=== PATIENT | female | born 1945 | race Caucasian/White ===

== ENCOUNTER 2017-08-13 11:58 | Emergency (ER) | payer OTHER, MEDICARE ==
[~2017-08-13] VITALS: Ht 167.6 cm; Wt 100.9 kg
[~2017-08-13 11:58] MED LIST: APIDRA100 UNITS/ PO; ASPIR 8181 M1 PO; BENADRYL25 MG PO; BENZONATATE100 MG PO; CELEXA20 MG PO; COUMADIN1 MG PO; FERROUS SULFAT325 MG PO; FISH OIL300 MG PO; GABAPENTIN600 MG PO; GLIPIZIDE5 M1 PO; GLUCOPHAGE1000 MG PO; HUMALOG100 UNIT/2 SC; HYDROCODON-ACE1 EAC9 PO; LEVEMIR100 UNIT/2 SQ; LIPITOR40 MG PO; LOSARTAN-HCTZ1 EAC2 PO; METHOCARBAMOL500 MG PO; METOPROLOL SUCC25 MG PO; METOPROLOL TAR100 MG PO; OXYCODONE HCL5 MG PO; PERCOCET 7.5-31 EACH PO; PLAVIX75 MG PO; QUDEXY XR200 MG PO; ROPINIROLE HCL2 MG PO; SENNA-TIME S T1 EACH PO; SIMVASTATIN80 MG PO; SYMBICORT60 INHALAT IH; TOPIRAMATE200 MG PO; TOUJEO SOL300 UNIT/1 SC; TRAMADOL HCL50 MG PO; TRAZODONE HCL50 MG PO; TUSSIONEX PENN473 ML PO; TYLENOL REGULA325 MG PO; VISTARIL25 MG PO; XANAX0.25 MG PO; ZITHROMAX1 GM PO
[2017-08-13 12:37] LABS: HEMATOCRIT 28.4 % (36.0-46.0); HEMOGLOBIN 9.3 G/DL (11.9-15.5); MCH 29.2 PG (29.0-34.0); MCHC 32.7 G/DL (30.0-36.0); MCV 89.3 FL (83-99); PLATELET COUNT 257 K/uL (156-360); RBC DIS.WIDTH-CV 13.6 % (11.8-14.6); RBC DIS.WIDTH-SD 44.8 % (39-53); RED BLOOD COUNT 3.18 M/uL (3.80-5.20); WHITE BLOOD COUNT 12.2 K/uL (4.1-10.2)
[2017-08-13 12:47] LABS: CHLORIDE 102 mEq/L (99-109); POTASSIUM 4.2 mEq/L (3.7-5.4); SODIUM 135 mEq/L (136-147)
[2017-08-13 12:49] LABS: GLUCOSE 160 mg/dL (70-99)
[2017-08-13 12:53] LABS: CREATININE 1.1 mg/dL (0.6-1.3); GFR ESTIMATE (CALCULATED) 52 mL/min/
[2017-08-13 12:54] LABS: UREA NITROGEN (BUN) 39 mg/dL (9-23)
[2017-08-13 13:30] LABS: APPEARANCE SL.HAZY ((CLEAR)); BILIRUBIN NEGATIVE; BLOOD SMALL; COLOR YELLOW ((YELLOW)); GLUCOSE (STRIP) NEGATIVE; KETONES NEGATIVE; LEUKOCYTES MODERATE; NITRITE NEGATIVE; PROTEIN (STRIP) NEGATIVE; SPECIFIC GRAVITY 1.008 (1.000-1.030); UROBILINOGEN 0.2 MG/DL (0.2-1.0)
[2017-08-13 13:36] LABS: BACTERIA RARE /HPF; EPITHELIAL CELLS RARE /HPF; MUCUS NONE SEEN /LPF; RED BLOOD CELLS 0-5 /HPF (0-5); WHITE BLOOD CELLS TNTC /HPF (0-5)
[2017-08-13] MEDS ORDERED: MACROBID100 MG PO (14:02)
[2017-08-13 15:24] VITALS: BP 121/72
== END 2017-08-13 15:26 | disposition home or self-care (01) ==
LOC: EME 11:58
PROVIDERS: Family Medicine
DX: N39.0 Urinary tract infection, site not specified (principal); R03.1 Nonspecific low blood-pressure reading; R42 Dizziness and giddiness; R53.1 Weakness; I25.2 Old myocardial infarction; I10 Essential (primary) hypertension; E78.5 Hyperlipidemia, unspecified; E11.9 Type 2 diabetes mellitus without complications; Z79.4 Long term (current) use of insulin; Z79.82 Long term (current) use of aspirin; Z90.710 Acquired absence of both cervix and uterus; Z90.49 Acquired absence of other specified parts of digestive tract; Z87.442 Personal history of urinary calculi; Z88.1 Allergy status to other antibiotic agents
CPT/HCPCS: 80048; 81003; 85027; 99281; 99284; J7040

== ENCOUNTER 2017-08-15 21:39 | Inpatient (IN) | payer OTHER, MEDICARE ==
[~2017-08-15] VITALS: Ht 167.6 cm; Wt 107.7 kg
[~2017-08-15 21:39] MED LIST changes: -ASPIR 8181 M1 PO; -CELEXA20 MG PO; -LIPITOR40 MG PO; -LOSARTAN-HCTZ1 EAC2 PO; +MACROBID100 MG PO; -METOPROLOL TAR100 MG PO; -ROPINIROLE HCL2 MG PO; -TOPIRAMATE200 MG PO; -TRAZODONE HCL50 MG PO; -XANAX0.25 MG PO
[2017-08-15 22:03] LABS: HEMATOCRIT 31.5 % (36.0-46.0); HEMOGLOBIN 10.4 G/DL (11.9-15.5); MCH 29.6 PG (29.0-34.0); MCV 89.7 FL (83-99); PLATELET COUNT 312 K/uL (156-360); RBC DIS.WIDTH-CV 13.4 % (11.8-14.6); RBC DIS.WIDTH-SD 44.1 % (39-53); RED BLOOD COUNT 3.51 M/uL (3.80-5.20); WHITE BLOOD COUNT 12.9 K/uL (4.1-10.2)
[2017-08-15 22:45] LABS: CHLORIDE 100 mEq/L (99-109); POTASSIUM 4.4 mEq/L (3.7-5.4); SODIUM 133 mEq/L (136-147)
[2017-08-15 22:49] LABS: INTER. NORMALIZED RATIO 1.4
[2017-08-15 22:50] LABS: GFR ESTIMATE (CALCULATED) 34 mL/min/; GLUCOSE 403 mg/dL (70-99)
[2017-08-15 22:51] LABS: PTT 24.8 SEC (25-37); TROP-I INTERPRETATION NEGATIVE; TROPONIN-I 0.05 ng/mL (0.0-0.30); UREA NITROGEN (BUN) 29 mg/dL (9-23)
[2017-08-15 22:52] LABS: CREATININE 1.6 mg/dL (0.6-1.3)
[2017-08-15 22:59] LABS: CREATINE KINASE 54 IU/L (1-294)
[2017-08-15 23:12] LABS: APPEARANCE SL.HAZY ((CLEAR)); BILIRUBIN NEGATIVE; BLOOD SMALL; COLOR YELLOW ((YELLOW)); GLUCOSE (STRIP) >=500; KETONES NEGATIVE; LEUKOCYTES LARGE; NITRITE NEGATIVE; PROTEIN (STRIP) 30; UROBILINOGEN 0.2 MG/DL (0.2-1.0)
[2017-08-15 23:22] LABS: BACTERIA RARE /HPF; EPITHELIAL CELLS RARE /HPF; MUCUS TRACE /LPF; UCUL ADDED? YES; WHITE BLOOD CELLS TNTC /HPF (0-5)
[2017-08-16 02:25] VITALS: BP 117/57
[2017-08-16 05:47] LABS: HEMATOCRIT 26.7 % (36.0-46.0); HEMOGLOBIN 8.4 G/DL (11.9-15.5); MCH 28.8 PG (29.0-34.0); MCHC 31.5 G/DL (30.0-36.0); MCV 91.4 FL (83-99); PLATELET COUNT 265 K/uL (156-360); RBC DIS.WIDTH-CV 13.6 % (11.8-14.6); RBC DIS.WIDTH-SD 46.5 % (39-53); RED BLOOD COUNT 2.92 M/uL (3.80-5.20); WHITE BLOOD COUNT 11.6 K/uL (4.1-10.2)
[2017-08-16 05:57] LABS: CHLORIDE 104 MEQ/L (99-109); CREATININE 1.2 MG/DL (0.6-1.3); GFR ESTIMATE (CALCULATED) 47 mL/min/; GLUCOSE 382 mg/dL (70-99); POTASSIUM 4.4 MEQ/L (3.7-5.4); SODIUM 136 MEQ/L (136-147); UREA NITROGEN (BUN) 26 mg/dL (9-23)
[2017-08-16 08:02] VITALS: BP 122/68
[2017-08-16 12:12] VITALS: BP 155/74
[2017-08-16 12:24] LABS: HEMATOCRIT 29.8 % (36.0-46.0); HEMOGLOBIN 9.2 G/DL (11.9-15.5)
[2017-08-16] MEDS ORDERED: METOPROLOL TAR100 MG PO (14:24)
[2017-08-16] MEDS ORDERED: XANAX0.25 MG PO (14:24)
[2017-08-16] MEDS ORDERED: ROPINIROLE HCL2 MG PO (14:25)
[2017-08-16] MEDS ORDERED: HUMALOG100 UNIT/2 SC (14:25)
[2017-08-16] MEDS ORDERED: TRAZODONE HCL50 MG PO (14:26)
[2017-08-16] MEDS ORDERED: ZANAFLEX2 MG PO (14:27)
[2017-08-16] MEDS ORDERED: ULTRAM50 MG PO (14:27)
[2017-08-16] MEDS ORDERED: GABAPENTIN300 MG PO (14:28)
[2017-08-16] MEDS ORDERED: FIORICET 50-301 EAC1 PO (14:28)
[2017-08-16 15:59] VITALS: BP 138/67
[2017-08-16 20:16] VITALS: BP 160/73
[2017-08-17] VITALS: BP 157/73
[2017-08-17 04:58] VITALS: BP 160/71
[2017-08-17 05:16] LABS: HEMATOCRIT 28.8 % (36.0-46.0); MCH 28.3 PG (29.0-34.0); MCHC 31.3 G/DL (30.0-36.0); MCV 90.6 FL (83-99); PLATELET COUNT 281 K/uL (156-360); RBC DIS.WIDTH-CV 13.4 % (11.8-14.6); RBC DIS.WIDTH-SD 44.8 % (39-53); RED BLOOD COUNT 3.18 M/uL (3.80-5.20); WHITE BLOOD COUNT 10.7 K/uL (4.1-10.2)
[2017-08-17 05:50] LABS: CHLORIDE 105 MEQ/L (99-109); CREATININE 0.8 MG/DL (0.6-1.3); GFR ESTIMATE (CALCULATED) > 59 mL/min/; POTASSIUM 4.4 MEQ/L (3.7-5.4); SODIUM 139 MEQ/L (136-147); UREA NITROGEN (BUN) 14 mg/dL (9-23)
[2017-08-17 05:58] LABS: GLUCOSE 125 mg/dL (70-99)
[2017-08-17 07:55] VITALS: BP 143/90
[2017-08-17 12:00] VITALS: BP 149/74
[2017-08-17 16:00] VITALS: BP 147/74
[2017-08-17 19:59] VITALS: BP 168/78
[2017-08-18 00:11] VITALS: BP 149/75
[2017-08-18 01:13] LABS: CHLORIDE 103 mEq/L (99-109); POTASSIUM 4.5 mEq/L (3.7-5.4); SODIUM 134 mEq/L (136-147)
[2017-08-18 01:15] LABS: GLUCOSE 145 mg/dL (70-99)
[2017-08-18 01:19] LABS: CREATININE 0.9 mg/dL (0.6-1.3); GFR ESTIMATE (CALCULATED) > 59 mL/min/; UREA NITROGEN (BUN) 15 mg/dL (9-23)
[2017-08-18 04:00] VITALS: BP 135/73
[2017-08-18 05:53] LABS: HEMATOCRIT 28.2 % (36.0-46.0); HEMOGLOBIN 8.9 G/DL (11.9-15.5); MCH 28.3 PG (29.0-34.0); MCHC 31.6 G/DL (30.0-36.0); MCV 89.8 FL (83-99); PLATELET COUNT 311 K/uL (156-360); RBC DIS.WIDTH-SD 45.7 % (39-53); RED BLOOD COUNT 3.14 M/uL (3.80-5.20); WHITE BLOOD COUNT 11.4 K/uL (4.1-10.2)
[2017-08-18 08:23] LABS: FERRITIN 119 NG/ML (10-291)
[2017-08-18 08:38] LABS: TRANSFERRIN (TIBC) 185.6 mg/dL (215-380)
[2017-08-18 08:39] LABS: IRON < 10 MCG/DL (35-150); TRANSFERRIN SATUR. 5 % (20-55)
[2017-08-18 08:44] VITALS: BP 124/58
[2017-08-18 11:49] VITALS: BP 134/64
[2017-08-18 15:28] VITALS: BP 164/80
[2017-08-19 00:51] VITALS: BP 111/60
[2017-08-19 06:22] LABS: HEMATOCRIT 28.9 % (36.0-46.0); HEMOGLOBIN 9.2 G/DL (11.9-15.5); MCH 28.8 PG (29.0-34.0); MCHC 31.8 G/DL (30.0-36.0); MCV 90.3 FL (83-99); PLATELET COUNT 293 K/uL (156-360); RBC DIS.WIDTH-SD 46.4 % (39-53); WHITE BLOOD COUNT 9.5 K/uL (4.1-10.2)
[2017-08-19 06:46] LABS: CHLORIDE 103 MEQ/L (99-109); CREATININE 0.8 MG/DL (0.6-1.3); GFR ESTIMATE (CALCULATED) > 59 mL/min/; GLUCOSE 123 mg/dL (70-99); POTASSIUM 4.6 MEQ/L (3.7-5.4); SODIUM 140 MEQ/L (136-147); UREA NITROGEN (BUN) 17 mg/dL (9-23)
[2017-08-19 07:05] VITALS: BP 136/60
[2017-08-19] MEDS ORDERED: LIPITOR40 MG PO (13:12)
[2017-08-19] MEDS ORDERED: TOPIRAMATE200 MG PO (13:12)
[2017-08-19] MEDS ORDERED: ASPIR 8181 M1 PO (13:12)
[2017-08-19] MEDS ORDERED: CELEXA20 MG PO (13:12)
[2017-08-19] MEDS ORDERED: LOSARTAN-HCTZ1 EAC2 PO (13:12)
[2017-08-19] MEDS ORDERED: TOUJEO SOL300 UNIT/1 SC (13:21)
[2017-08-19 15:37] VITALS: BP 144/70
[2017-08-20 00:31] VITALS: BP 146/68
[2017-08-20 07:11] VITALS: BP 117/61
[2017-08-20] MEDS ORDERED: FERROUS SULFAT325 MG PO (13:19)
[2017-08-20] MEDS ORDERED: ROBITUSSIN AC,T10 ML PO (13:23)
[2017-08-20] MEDS ORDERED: BACTRIM,SEPT1 TABLET PO (13:32)
== END 2017-08-20 14:50 | disposition home or self-care (01) | DRG 872 ==
LOC: EME → EDBD 21:39 → 5SOUTH 08-16 01:02 → EDOF 08-16 01:02 → ENRESERV 08-16 01:08 → 5SOUTH 08-16 02:23
PROVIDERS: Emergency Medicine; Hospitalist; Physician Assistant Medical
DX: A41.59 Other Gram-negative sepsis (principal); N39.0 Urinary tract infection, site not specified; N17.9 Acute kidney failure, unspecified; J98.11 Atelectasis; E86.0 Dehydration; J20.9 Acute bronchitis, unspecified; I10 Essential (primary) hypertension; N20.0 Calculus of kidney; E78.5 Hyperlipidemia, unspecified; E11.65 Type 2 diabetes mellitus with hyperglycemia; D50.9 Iron deficiency anemia, unspecified; I25.10 Atherosclerotic heart disease of native coronary artery without angina pectoris; I77.811 Abdominal aortic ectasia; K21.9 Gastro-esophageal reflux disease without esophagitis; R09.02 Hypoxemia; F41.9 Anxiety disorder, unspecified; G43.909 Migraine, unspecified, not intractable, without status migrainosus; Z79.4 Long term (current) use of insulin; Z87.440 Personal history of urinary (tract) infections; Z87.442 Personal history of urinary calculi; Z88.1 Allergy status to other antibiotic agents; Z90.710 Acquired absence of both cervix and uterus; Z91.11 Patient's noncompliance with dietary regimen; Z91.14 Patient's other noncompliance with medication regimen; Z91.19 Patient's noncompliance with other medical treatment and regimen; Z95.5 Presence of coronary angioplasty implant and graft; Z82.49 Family history of ischemic heart disease and other diseases of the circulatory system
CPT/HCPCS: 71046; 71250; 80048; 81003; 82550; 82550 91; 82728; 82948; 83540; 83605; 84466; 84484; 85014; 85018; 85027; 85610; 85730; 87040; 87077; 87086 GA; 87186; 87801; 93005; 94010; 94640; 94640 76; 94760; 94799; 97530 GO; 99202; 99281; 99285; J0696; J1644; J1815; J7030